=== PATIENT | female | born 1985 | race Caucasian/White ===

== ENCOUNTER → 2021-11-15 | Outpatient (CLI) | payer OTHER ==
--- NOTE | 2021-11-15 15:02 | RAD ---
EXAM: Bilateral lower extremity venous Doppler. HISTORY: Bilateral lower extremity pain/swelling. COMPARISON: 11/07/2021 FINDINGS: Grayscale and Doppler analysis of the both lower extremity deep venous systems was performe d with graded compression and augmentation. The common femoral, greater saphenous, superficial femora l, popliteal and calf veins were assessed. There is no evidence of deep venous thrombosis. There is a small popliteal cyst on the left. IMPRESSION: 1. No evidence of deep venous thrombosis. Electronically signed by: Melissa Lopez MD (11/15/2021 2:59 PM) REJI
== END ==
LOC: US 13:22
PROVIDERS: ATTEND Nurse Practitioner Family
DX: M71.22 Synovial cyst of popliteal space [Baker], left knee (principal); M79.604 Pain in right leg; M79.605 Pain in left leg; M79.89 Other specified soft tissue disorders
CPT/HCPCS: 93970